=== PATIENT | male | born 1945 | race Caucasian/White ===

== ENCOUNTER → 2018-09-19 | Outpatient (CLI) | payer OTHER, MEDICARE ==
[~2018-09-19] MED LIST: ALLER-EASE180 MG PO; AVAPRO 150 MG150 M1 PO; AVELOX 400 MG400 MG; CENTRUM SILVER1 EAC1 PO; COLACE100 MG PO; COZAAR100 MG PO; ENDOCET 10-3251 EACH PO; FENTANYL PATCH75 MCG TD; FIBERCON625 M1 PO; GENTEAL MILD TO25 ML; GENTEAL MODERAT25 ML GTT; GENTEAL SEVERE10 GM GTT; KLONOPIN PO; NORVASC10 MG PO; OXYCONTIN30 MG PO; PROTONIX40 M2 PO; REFRESH5 ML GTT; RESTORIL15 MG PO; SINGULAIR 10 MG10 M1 PO; SYSTANE BALANCE10 ML; TUSSIONEX PENNKI1 ML PO; XOPENEX HF1 UDINHALE INH
== END ==
LOC: RAD 09:11
DX: R09.89 Other specified symptoms and signs involving the circulatory and respiratory systems (principal); R50.9 Fever, unspecified

== ENCOUNTER → 2019-11-23 | Outpatient (CLI) | payer OTHER, MEDICARE | LOC: RAD 12:26 | DX: R06.02 Shortness of breath (principal) ==